=== PATIENT | female | born 1965 | race Caucasian/White ===

== ENCOUNTER 2025-01-09 06:29 | Day surgery (SDC) | payer OTHER ==
[2025-01-08 11:33] VITALS: BMI 30.1
[~2025-01-09 06:29] MED LIST: EPINEPHrine 0.3 MG in Ophthalmic Irrigation Solution 500 ML IRR SCH
[2025-01-09] MEDS ORDERED: Cyclopentolate 1% Opth Drop 2 ML BOT ONE (07:02)
[2025-01-09] MEDS ORDERED: PROPOFOL 20 ML ONE (07:47)
[2025-01-09] MEDS ORDERED: Lidocaine 1% PF 5 ML VIAL ONE ×2 (07:48→08:24)
[2025-01-09] MEDS ORDERED: Maxitrol 0.1% Opth Oint 3.5 GM TUBE ONE (08:24)
[2025-01-09] MEDS ORDERED: CEFAZOLIN 1 GM VIAL ONE (08:24)
[2025-01-09] MEDS ORDERED: Lidocaine 4% PF 5 ML AMP ONE (08:24)
== END 2025-01-09 09:54 | disposition home or self-care (01) ==
LOC: SDC 06:29
PROVIDERS: ATTEND Ophthalmology Retina Specialist
PROC: 08T53ZZ Resection of Left Vitreous, Percutaneous Approach (ICD-10-PCS; principal; 2025-01-09)
DX: H33.42 Traction detachment of retina, left eye (principal); Z98.49 Cataract extraction status, unspecified eye; Z96.1 Presence of intraocular lens; Z90.49 Acquired absence of other specified parts of digestive tract; Z88.5 Allergy status to narcotic agent; Z91.048 Other nonmedicinal substance allergy status
CPT/HCPCS: 67108; C1814; J0166; J0690; J2250; J2704; J3301; J3490